=== PATIENT | male | born 1970 | race Caucasian/White ===

== ENCOUNTER 2019-07-23 18:09 | Inpatient (IN) | payer OTHER ==
[~2019-07-23] VITALS: Ht 177.8 cm; Wt 79.4 kg
[2019-07-23] MEDS ORDERED: METRONIDAZOLE375 MG (18:49)
[2019-07-23] MEDS ORDERED: LEVOTHYROXINE25 MCG (18:49)
[2019-07-23] MEDS ORDERED: CIPRO250 MG/5 M (18:49)
[2019-07-23] MEDS ORDERED: ATORVASTATIN CA10 MG (18:50)
[2019-07-23] MEDS ORDERED: HYDROXYZIN10 MG/5 ML (18:50)
[2019-07-23] MEDS ORDERED: LIPITOR40 M1 (18:51)
--- NOTE | 2019-07-23 19:00 | NUR ---
PTE ALERTA Y ORIENTADO X 3 ESFERAS TRAIDO AMBULANDO DESDE [facility] SALUS POR DRA MIX QUIEN REFIERE PTE CON PLAQUETAS EN 0 POR LABORATORIO.PTE REFIERE NO TENER DOLOR AL MOMENTO,NO PRESENTAR [place].SE PRESENTA A DR Imelda HORTON.
--- NOTE | 2019-07-23 19:39 | NUR ---
CHAU Summers PRYOR ANA MUESTRAS DE DEIRDRE BAJO MEDIDAS ASEPTICAS, ORIENTA PACIENTE SOBRE PROCEDIMIENTO EL CUAL VERBALIZA ENTENDER.
[2019-07-25] MEDS ORDERED: PREDNISONE20 M1 PO (10:50)
== END 2019-07-25 10:54 | disposition home or self-care (01) | DRG 813 ==
LOC: ER 18:09 → MEDI 22:32 → ICU 07-24 13:14
PROVIDERS: ADMIT Internal Medicine
PROC: 30233R1 Transfusion of Nonautologous Platelets into Peripheral Vein, Percutaneous Approach (ICD-10-PCS; principal; 2019-07-23)
DX: D69.3 Immune thrombocytopenic purpura (principal); K50.10 Crohn's disease of large intestine without complications; E03.8 Other specified hypothyroidism; E11.65 Type 2 diabetes mellitus with hyperglycemia; L65.8 Other specified nonscarring hair loss; L80 Vitiligo; Z79.4 Long term (current) use of insulin